=== PATIENT | female | born 1945 | race Caucasian/White ===

== ENCOUNTER 2017-02-02 04:49 | Emergency (ER) | payer OTHER ==
[~2017-02-02] VITALS: Ht 167.6 cm; Wt 94.8 kg
[~2017-02-02 04:49] MED LIST: ADULT LOW DOSE81 M1 PO; ADVAIR 250/501 DISK IH; ADVAIR 500/501 DISK IH; AEROECLIPSE1 EACH MC; ALENDRONATE SOD70 MG PO; ALPRAZOLAM0.25 M2 PO; AMOX TR-K CLV1 EAC4 PO; ASPIR 8181 M1 PO; ASPIRIN81 M2 PO; ATORVASTATIN CA20 MG PO; AZITHROMYCIN250 MG1 PO; AZITHROMYCIN500 M1 PO; BINOSTO70 MG PO; CALCIUM 500 MG1 EAC1 PO; CENTRUM SILVER1 EAC3 PO; CHILD ASPIRIN81 M1 PO; CYANOCOBALAM1000 MCG PO; DALIRESP500 MCG PO; FISH OIL 1,0001 EAC7 PO; FISH OIL 1,2001 EAC4 PO; FISH OIL300 MG PO; FLONASE16 G1 BOTH NARES; FLORASTOR250 MG PO; FOLBIC RF TABL1 EACH PO; FOSAMAX70 MG PO; LEVAQUIN500 MG PO; LEVOFLOXACIN750 MG PO; LIPITOR20 MG PO; LIPITOR40 MG PO; MAGNESIUM400 M1 PO; MAGNESIUM400 MG PO; MAGOX 400400 MG PO; MELOXICAM7.5 MG PO; MICARDIS40 MG PO; MUCINEX600 MG PO; NEXIUM40 MG PO; NICOTINE PATCH1 EAC2 TD; PREDNISONE10 MG PO; PREDNISONE20 MG PO; PREDNISONE50 MG PO; PROAIR HFA8.5 GM IH; PROVENTIL,2.5 MG/0.5 IH; PROVENTIL,2.5 MG/3 M IH; ROBITUSSIN AC,T10 ML PO; SPIRIVA1 INHALATI IH; TYLENOL EXTRA500 MG PO; VENTOLIN HFA18 GM IH; VITAMIN D5000 UNIT PO; WELLBUTRIN SR150 MG PO; ZITHROMAX Z-PA250 MG PO
[2017-02-02 05:40] LABS: CHLORIDE 105 mEq/L (99-109); POTASSIUM 4.6 mEq/L (3.7-5.4); SODIUM 138 mEq/L (136-147)
[2017-02-02 05:42] LABS: GLUCOSE 115 mg/dL (70-99)
[2017-02-02 05:44] LABS: ANION GAP 12 MEQ/L (2-14)
[2017-02-02 05:45] LABS: TROP-I INTERPRETATION NEGATIVE; TROPONIN-I < 0.01 ng/mL (0.0-0.30)
[2017-02-02 05:46] LABS: GFR ESTIMATE (CALCULATED) 58 mL/min/; HEMATOCRIT 41.8 % (36.0-46.0); MCH 28.1 PG (29.0-34.0); MCHC 32.8 G/DL (30.0-36.0); MCV 85.8 FL (83-99); MEAN PLAT.VOLUME 10.1 uM^3 (9.5-12.4); PLATELET COUNT 290 K/uL (156-360); RBC DIS.WIDTH-CV 14.2 % (11.8-14.6); RBC DIS.WIDTH-SD 44.4 % (39-53); RED BLOOD COUNT 4.87 M/uL (3.80-5.20); WHITE BLOOD COUNT 9.5 K/uL (4.1-10.2)
[2017-02-02 05:47] LABS: UREA NITROGEN (BUN) 17 mg/dL (9-23)
[2017-02-02] MEDS ORDERED: ZITHROMAX Z-PA250 MG PO (06:15)
[2017-02-02] MEDS ORDERED: PREDNISONE50 MG PO (06:15)
[2017-02-02 06:31] VITALS: BP 154/93
== END 2017-02-02 06:33 | disposition home or self-care (01) ==
LOC: EME → EDBD 04:49 → EME 06:33
DX: J44.1 Chronic obstructive pulmonary disease with (acute) exacerbation (principal); R51 Headache; J45.909 Unspecified asthma, uncomplicated; I10 Essential (primary) hypertension; E78.5 Hyperlipidemia, unspecified; Z79.82 Long term (current) use of aspirin; Z87.891 Personal history of nicotine dependence
CPT/HCPCS: 71020; 80048; 84484; 85027; 93005; 94640; 99281; 99285; J7512

== ENCOUNTER 2017-06-19 21:33 | Inpatient (IN) | payer OTHER ==
[~2017-06-19] VITALS: Ht 167.6 cm; Wt 92.3 kg
[~2017-06-19 21:33] MED LIST changes: +MICARDIS HCT1 TABLE1 PO; +VITAMIN B-12250 MCG PO
[2017-06-19 22:11] LABS: HEMATOCRIT 40.1 % (36.0-46.0); MCH 28.3 PG (29.0-34.0); MCHC 33.9 G/DL (30.0-36.0); MCV 83.5 FL (83-99); MEAN PLAT.VOLUME 9.8 uM^3 (9.5-12.4); PLATELET COUNT 311 K/uL (156-360); RBC DIS.WIDTH-CV 13.5 % (11.8-14.6); RBC DIS.WIDTH-SD 41.1 % (39-53); WHITE BLOOD COUNT 11.6 K/uL (4.1-10.2)
[2017-06-19 22:24] LABS: CHLORIDE 101 mEq/L (99-109); POTASSIUM 4.1 mEq/L (3.7-5.4); SODIUM 135 mEq/L (136-147)
[2017-06-19 22:26] LABS: GLUCOSE 153 mg/dL (70-99)
[2017-06-19 22:27] LABS: ANION GAP 15 MEQ/L (2-14)
[2017-06-19 22:29] LABS: GFR ESTIMATE (CALCULATED) 47 mL/min/
[2017-06-19 22:30] LABS: UREA NITROGEN (BUN) 25 mg/dL (9-23)
[2017-06-20 05:22] VITALS: BP 155/54
[2017-06-20 06:50] LABS: HEMATOCRIT 40.7 % (36.0-46.0); MCH 29.7 PG (29.0-34.0); MCHC 34.9 G/DL (30.0-36.0); MCV 85.1 FL (83-99); MEAN PLAT.VOLUME 10.1 uM^3 (9.5-12.4); PLATELET COUNT 314 K/uL (156-360); RBC DIS.WIDTH-CV 13.6 % (11.8-14.6); RBC DIS.WIDTH-SD 42.5 % (39-53); RED BLOOD COUNT 4.78 M/uL (3.80-5.20); WHITE BLOOD COUNT 10.1 K/uL (4.1-10.2)
[2017-06-20 07:15] LABS: ALKALINE PHOSPHATASE 90 IU/L (3-129); ANION GAP 15 MEQ/L (2-14); CHLORIDE 99 MEQ/L (99-109); GFR ESTIMATE (CALCULATED) 52 mL/min/; GLUCOSE 161 mg/dL (70-99); POTASSIUM 4.8 MEQ/L (3.7-5.4); SAMPLE HEMOLYSIS CHECK 0; SAMPLE ICTERIC CHECK 0; SAMPLE LIPEMIA CHECK 0; SODIUM 137 MEQ/L (136-147); TOTAL BILIRUBIN 0.6 MG/DL (0.0-1.0); UREA NITROGEN (BUN) 24 mg/dL (9-23)
[2017-06-20 07:55] VITALS: BP 133/83
[2017-06-20] MEDS ORDERED: PREDNISONE20 MG PO (11:14)
[2017-06-20] MEDS ORDERED: AZELASTINE137 MCG/0. BOTH NARES (11:15)
[2017-06-20] MEDS ORDERED: MONTELUKAST SOD10 MG PO (11:18)
[2017-06-20] MEDS ORDERED: VITAMIN E400 UNIT PO (11:19)
[2017-06-20] MEDS ORDERED: AZITHROMYCIN250 MG1 PO (11:19)
[2017-06-20 11:32] VITALS: BP 151/67
[2017-06-20 11:37] LABS: POINT-OF-CARE METER ID UU14208750
[2017-06-20 16:31] LABS: POINT-OF-CARE METER ID UU14208750
[2017-06-20 16:47] VITALS: BP 136/66
[2017-06-20 19:44] VITALS: BP 127/60
[2017-06-20 21:14] LABS: POINT-OF-CARE METER ID UU14208750
[2017-06-20 23:27] VITALS: BP 100/53
[2017-06-21 03:40] VITALS: BP 130/75
[2017-06-21 05:47] LABS: EOSINOPHIL (%) 0 % (0-5); HEMATOCRIT 37.2 % (36.0-46.0); IMMATURE GRANULOCYTE (%) 0.7 % (0.0-0.7); IMMATURE GRANULOCYTE COUNT 0.2 K/uL; INSTRUMENT ABS NEUTROPHIL CT 19.3 K/uL; LYMPHOCYTE COUNT 0.7 K/uL (1.0-2.8); MCH 28.2 PG (29.0-34.0); MCHC 33.3 G/DL (30.0-36.0); MCV 84.7 FL (83-99); MEAN PLAT.VOLUME 10.3 uM^3 (9.5-12.4); MONOCYTE (%) 2.2 % (3-12); MONOCYTE COUNT 0.5 K/uL (0-0.8); NEUTROPHIL (%) 93.4 % (45-76); NEUTROPHIL COUNT 19.3 K/uL (1.8-6.4); PLATELET COUNT 306 K/uL (156-360); RBC DIS.WIDTH-SD 43.4 % (39-53); RED BLOOD COUNT 4.39 M/uL (3.80-5.20); WHITE BLOOD COUNT 20.7 K/uL (4.1-10.2)
[2017-06-21 06:11] LABS: ANION GAP 12 MEQ/L (2-14); CHLORIDE 104 MEQ/L (99-109); GFR ESTIMATE (CALCULATED) 52 mL/min/; GLUCOSE 191 mg/dL (70-99); POTASSIUM 4.4 MEQ/L (3.7-5.4); SAMPLE HEMOLYSIS CHECK 0; SAMPLE ICTERIC CHECK 0; SAMPLE LIPEMIA CHECK 0; SODIUM 137 MEQ/L (136-147); UREA NITROGEN (BUN) 28 mg/dL (9-23)
[2017-06-21 07:42] VITALS: BP 120/58
[2017-06-21 10:21] LABS: Estimated Average Glucose 120 mg/dL (70-123); HEMOGLOBIN A1c (GLYCOHEMOGLOB) 5.8 % HGB (Below 5.7)
[2017-06-21 11:47] LABS: POINT-OF-CARE METER ID UU14208750
[2017-06-21 16:21] LABS: POINT-OF-CARE METER ID UU14208750
[2017-06-21 16:44] VITALS: BP 132/61
[2017-06-21 21:23] LABS: POINT-OF-CARE METER ID UU14208750
[2017-06-21 23:41] VITALS: BP 111/55
[2017-06-22 03:53] VITALS: BP 106/55
[2017-06-22 06:21] LABS: EOSINOPHIL (%) 0 % (0-5); HEMATOCRIT 39.1 % (36.0-46.0); IMMATURE GRANULOCYTE (%) 0.9 % (0.0-0.7); IMMATURE GRANULOCYTE COUNT 0.2 K/uL; INSTRUMENT ABS NEUTROPHIL CT 16.5 K/uL; LYMPHOCYTE COUNT 0.6 K/uL (1.0-2.8); MCH 28.1 PG (29.0-34.0); MCV 85.2 FL (83-99); MEAN PLAT.VOLUME 10.1 uM^3 (9.5-12.4); MONOCYTE (%) 2.5 % (3-12); MONOCYTE COUNT 0.4 K/uL (0-0.8); NEUTROPHIL (%) 93.4 % (45-76); NEUTROPHIL COUNT 16.5 K/uL (1.8-6.4); PLATELET COUNT 331 K/uL (156-360); RBC DIS.WIDTH-CV 14.1 % (11.8-14.6); RBC DIS.WIDTH-SD 43.7 % (39-53); RED BLOOD COUNT 4.59 M/uL (3.80-5.20); WHITE BLOOD COUNT 17.6 K/uL (4.1-10.2)
[2017-06-22 06:38] LABS: POINT-OF-CARE METER ID UU14208750
[2017-06-22 06:49] LABS: ALKALINE PHOSPHATASE 80 IU/L (3-129); ANION GAP 11 MEQ/L (2-14); CHLORIDE 102 MEQ/L (99-109); GFR ESTIMATE (CALCULATED) 52 mL/min/; GLUCOSE 140 mg/dL (70-99); POTASSIUM 4.6 MEQ/L (3.7-5.4); SAMPLE HEMOLYSIS CHECK 0; SAMPLE ICTERIC CHECK 0; SAMPLE LIPEMIA CHECK 0; SODIUM 135 MEQ/L (136-147); TOTAL BILIRUBIN 0.5 MG/DL (0.0-1.0); UREA NITROGEN (BUN) 32 mg/dL (9-23)
[2017-06-22 07:47] VITALS: BP 125/59
[2017-06-22] MEDS ORDERED: MICARDIS40 MG PO (09:16)
[2017-06-22] MEDS ORDERED: CEFTIN500 MG PO (09:16)
== END 2017-06-22 11:05 | disposition home or self-care (01) | DRG 192 ==
LOC: EME 21:33 → EDOF 06-20 02:44 → ENRESERV 06-20 02:59 → 2EASTP 06-20 04:58
PROVIDERS: Hospitalist; Internal Medicine
DX: J44.0 Chronic obstructive pulmonary disease with (acute) lower respiratory infection (principal); J20.9 Acute bronchitis, unspecified; J44.1 Chronic obstructive pulmonary disease with (acute) exacerbation; R73.9 Hyperglycemia, unspecified; I10 Essential (primary) hypertension; G47.33 Obstructive sleep apnea (adult) (pediatric); F41.9 Anxiety disorder, unspecified; K21.9 Gastro-esophageal reflux disease without esophagitis; E78.00 Pure hypercholesterolemia, unspecified; E78.5 Hyperlipidemia, unspecified; I73.9 Peripheral vascular disease, unspecified; Z72.0 Tobacco use; Z68.32 Body mass index [BMI] 32.0-32.9, adult; Z79.899 Other long term (current) drug therapy; Z90.49 Acquired absence of other specified parts of digestive tract; Z82.49 Family history of ischemic heart disease and other diseases of the circulatory system
CPT/HCPCS: 71010; 80048; 80053; 82948; 83036; 85025; 85027; 93005; 94640; 94640 76; 94644; 94660; 94799; 99202; 99281; 99285; J0696; J1644; J1815; J2930; J7030; J7050

== ENCOUNTER 2017-07-20 00:20 | Inpatient (IN) | payer OTHER ==
[~2017-07-20] VITALS: Ht 167.6 cm; Wt 91.5 kg
[~2017-07-20 00:20] MED LIST changes: +AZELASTINE137 MCG/0. BOTH NARES; +CEFTIN500 MG PO; +MONTELUKAST SOD10 MG PO; +VITAMIN E400 UNIT PO
[2017-07-20 01:31] LABS: BASOPHIL COUNT 0.1 K/uL (0-0.1); EOSINOPHIL (%) 12.8 % (0-5); EOSINOPHIL COUNT 1.1 K/uL (0-0.3); HEMATOCRIT 38.2 % (36.0-46.0); IMMATURE GRANULOCYTE (%) 0.2 % (0.0-0.7); INSTRUMENT ABS NEUTROPHIL CT 4.2 K/uL; LYMPHOCYTE COUNT 2.2 K/uL (1.0-2.8); MCH 28.4 PG (29.0-34.0); MEAN PLAT.VOLUME 9.6 uM^3 (9.5-12.4); MONOCYTE (%) 7.5 % (3-12); MONOCYTE COUNT 0.6 K/uL (0-0.8); NEUTROPHIL (%) 51.5 % (45-76); NEUTROPHIL COUNT 4.2 K/uL (1.8-6.4); PLATELET COUNT 292 K/uL (156-360); RBC DIS.WIDTH-CV 13.7 % (11.8-14.6); RBC DIS.WIDTH-SD 42.8 % (39-53); RED BLOOD COUNT 4.44 M/uL (3.80-5.20); WHITE BLOOD COUNT 8.2 K/uL (4.1-10.2)
[2017-07-20 01:42] LABS: CHLORIDE 106 mEq/L (99-109); POTASSIUM 3.4 mEq/L (3.7-5.4); SODIUM 143 mEq/L (136-147)
[2017-07-20 01:44] LABS: GLUCOSE 163 mg/dL (70-99)
[2017-07-20 01:46] LABS: ANION GAP 13 MEQ/L (2-14)
[2017-07-20 01:48] LABS: GFR ESTIMATE (CALCULATED) > 59 mL/min/
[2017-07-20 01:49] LABS: UREA NITROGEN (BUN) 19 mg/dL (9-23)
[2017-07-20 01:51] LABS: TROP-I INTERPRETATION NEGATIVE; TROPONIN-I < 0.01 ng/mL (0.0-0.30)
[2017-07-20 04:46] VITALS: BP 151/79
[2017-07-20 08:15] VITALS: BP 134/71
[2017-07-20] MEDS ORDERED: BUSPAR5 MG PO (09:03)
[2017-07-20] MEDS ORDERED: ATIVAN1 MG PO (09:03)
[2017-07-20] MEDS ORDERED: AMLOD-VALSA-HC1 EAC1 PO (09:03)
[2017-07-20] MEDS ORDERED: ZITHROMAX500 MG PO (09:04)
[2017-07-20 13:00] VITALS: BP 149/71
[2017-07-20 16:11] VITALS: BP 140/67
[2017-07-20 19:52] VITALS: BP 131/66
[2017-07-20 23:20] VITALS: BP 137/68
[2017-07-21 03:33] VITALS: BP 126/59
[2017-07-21 07:42] LABS: HEMATOCRIT 41.3 % (36.0-46.0); MCH 27.9 PG (29.0-34.0); MCV 87.3 FL (83-99); PLATELET COUNT 367 K/uL (156-360); RBC DIS.WIDTH-CV 14.1 % (11.8-14.6); RBC DIS.WIDTH-SD 45.4 % (39-53); RED BLOOD COUNT 4.73 M/uL (3.80-5.20); WHITE BLOOD COUNT 15.5 K/uL (4.1-10.2)
[2017-07-21 07:50] VITALS: BP 121/59
[2017-07-21 08:11] LABS: ANION GAP 11 MEQ/L (2-14); CHLORIDE 105 MEQ/L (99-109); GFR ESTIMATE (CALCULATED) 58 mL/min/; GLUCOSE 135 mg/dL (70-99); POTASSIUM 4.8 MEQ/L (3.7-5.4); SAMPLE HEMOLYSIS CHECK 0; SAMPLE ICTERIC CHECK 0; SAMPLE LIPEMIA CHECK 0; SODIUM 141 MEQ/L (136-147); UREA NITROGEN (BUN) 25 mg/dL (9-23)
[2017-07-21 11:38] VITALS: BP 137/71
[2017-07-21 15:55] VITALS: BP 130/77
[2017-07-21 20:00] VITALS: BP 138/63
[2017-07-22] VITALS (7 sets, daily range): BP systolic 133–163; BP diastolic 65–77
[2017-07-23 03:35] VITALS: BP 144/67
[2017-07-23 06:42] LABS: EOSINOPHIL (%) 0 % (0-5); HEMATOCRIT 39.9 % (36.0-46.0); IMMATURE GRANULOCYTE (%) 1.8 % (0.0-0.7); IMMATURE GRANULOCYTE COUNT 0.2 K/uL; LYMPHOCYTE COUNT 0.7 K/uL (1.0-2.8); MCH 28.4 PG (29.0-34.0); MCHC 32.8 G/DL (30.0-36.0); MCV 86.6 FL (83-99); MEAN PLAT.VOLUME 9.8 uM^3 (9.5-12.4); MONOCYTE (%) 4.7 % (3-12); MONOCYTE COUNT 0.6 K/uL (0-0.8); PLATELET COUNT 360 K/uL (156-360); RBC DIS.WIDTH-CV 13.9 % (11.8-14.6); RBC DIS.WIDTH-SD 44.6 % (39-53); RED BLOOD COUNT 4.61 M/uL (3.80-5.20); WHITE BLOOD COUNT 12.5 K/uL (4.1-10.2)
[2017-07-23 07:02] VITALS: BP 168/80
[2017-07-23 07:05] LABS: ANION GAP 11 MEQ/L (2-14); CHLORIDE 105 MEQ/L (99-109); GFR ESTIMATE (CALCULATED) 58 mL/min/; GLUCOSE 135 mg/dL (70-99); POTASSIUM 4.3 MEQ/L (3.7-5.4); SAMPLE HEMOLYSIS CHECK 0; SAMPLE ICTERIC CHECK 0; SAMPLE LIPEMIA CHECK 0; SODIUM 141 MEQ/L (136-147); UREA NITROGEN (BUN) 32 mg/dL (9-23)
[2017-07-23] MEDS ORDERED: CEFTIN500 MG PO (13:59)
[2017-07-23] MEDS ORDERED: GUAIFENESIN WI120 M1 PO (14:00)
[2017-07-23] MEDS ORDERED: PREDNISONE20 MG PO (14:01)
== END 2017-07-23 14:30 | disposition home or self-care (01) | DRG 190 ==
LOC: EME → EDBD 00:20 → EDOF 02:34 → 2EAST 02:34 → EDOF 02:34 → ENRESERV 02:35 → 2EAST 04:37
PROVIDERS: Emergency Medicine; Hospitalist; Internal Medicine
PROC: 5A09357 Assistance with Respiratory Ventilation, Less than 24 Consecutive Hours, Continuous Positive Airway Pressure (ICD-10-PCS; principal; 2017-07-20)
DX: J44.1 Chronic obstructive pulmonary disease with (acute) exacerbation (principal); J96.01 Acute respiratory failure with hypoxia; J44.0 Chronic obstructive pulmonary disease with (acute) lower respiratory infection; J20.9 Acute bronchitis, unspecified; E11.9 Type 2 diabetes mellitus without complications; I10 Essential (primary) hypertension; E78.5 Hyperlipidemia, unspecified; F41.9 Anxiety disorder, unspecified; K21.9 Gastro-esophageal reflux disease without esophagitis; G47.33 Obstructive sleep apnea (adult) (pediatric); M19.90 Unspecified osteoarthritis, unspecified site; Z66 Do not resuscitate; E66.9 Obesity, unspecified; Z68.32 Body mass index [BMI] 32.0-32.9, adult; Z87.891 Personal history of nicotine dependence; Z90.49 Acquired absence of other specified parts of digestive tract; Z90.710 Acquired absence of both cervix and uterus; Z82.49 Family history of ischemic heart disease and other diseases of the circulatory system; Z82.3 Family history of stroke
CPT/HCPCS: 71010; 80048; 84484; 85025; 85027; 87070; 87205; 93005; 94640; 94640 76; 94660; 94799; 99202; 99281; 99285; G0378; J0696; J1644; J2920; J2930; J3475; J7030; J7050; J7644; S0028

== ENCOUNTER 2018-01-12 02:19 | Inpatient (IN) | payer OTHER ==
[~2018-01-12] VITALS: Ht 167.6 cm; Wt 93.5 kg
[~2018-01-12 02:19] MED LIST changes: -ADVAIR 500/501 DISK IH; +ADVAIR HFA120 INHAL1 IH; +AMLOD-VALSA-HC1 EAC1 PO; +ATIVAN1 MG PO; +BUSPAR10 MG PO; +GUAIFENESIN WI120 M1 PO; -VITAMIN B-12250 MCG PO; +ZITHROMAX500 MG PO
[2018-01-12 02:56] LABS: HEMATOCRIT 38.3 % (36.0-46.0); MCH 29.1 PG (29.0-34.0); MCHC 33.9 G/DL (30.0-36.0); MCV 85.9 FL (83-99); PLATELET COUNT 256 K/uL (156-360); RBC DIS.WIDTH-CV 13.2 % (11.8-14.6); RBC DIS.WIDTH-SD 41.2 % (39-53); RED BLOOD COUNT 4.46 M/uL (3.80-5.20)
[2018-01-12 03:18] LABS: TROP-I INTERPRETATION NEGATIVE; TROPONIN-I < 0.01 ng/mL (0.0-0.30)
[2018-01-12 03:28] LABS: ALKALINE PHOSPHATASE 73 IU/L (3-129); ALT (GPT) 18 IU/L (3-49); AST (GOT) 15 IU/L (2-34); CHLORIDE 105 MEQ/L (99-109); CREATININE 0.9 MG/DL (0.6-1.3); GFR ESTIMATE (CALCULATED) > 59 mL/min/; GLUCOSE 147 mg/dL (70-99); POTASSIUM 3.8 MEQ/L (3.7-5.4); SODIUM 141 MEQ/L (136-147); TOTAL BILIRUBIN 0.3 MG/DL (0.0-1.0); TOTAL PROTEIN 6.1 G/DL (6.4-8.3); UREA NITROGEN (BUN) 24 mg/dL (9-23)
[2018-01-12 03:44] LABS: LIPASE 36 U/L (1.0-51.0)
[2018-01-12 07:19] LABS: APPEARANCE CLEAR ((CLEAR)); BILIRUBIN NEGATIVE; BLOOD NEGATIVE; COLOR YELLOW ((YELLOW)); GLUCOSE (STRIP) NEGATIVE; KETONES NEGATIVE; LEUKOCYTES NEGATIVE; NITRITE NEGATIVE; PROTEIN (STRIP) NEGATIVE; SPECIFIC GRAVITY 1.015 (1.000-1.030); UCUL ADDED? NO; UROBILINOGEN 0.2 MG/DL (0.2-1.0)
[2018-01-12 09:00] LABS: TROP-I INTERPRETATION NEGATIVE; TROPONIN-I < 0.01 ng/mL (0.0-0.30)
[2018-01-12 09:07] LABS: MAGNESIUM 2.1 mg/dl (1.3-2.7)
[2018-01-12 09:13] LABS: PHOSPHORUS 3.5 mg/dL (2.5-4.9)
[2018-01-12 10:29] LABS: THYROTROPIN (TSH) 0.48 MIU/L (0.4-5.5)
[2018-01-12] MEDS ORDERED: INCRUSE ELLI62.5 MCG IH (10:59)
[2018-01-12] MEDS ORDERED: DIOVAN80 MG PO (11:01)
[2018-01-12] MEDS ORDERED: VENTOLIN HFA18 GM IH (11:09)
[2018-01-12] MEDS ORDERED: LASIX40 MG PO (11:12)
[2018-01-12] MEDS ORDERED: NORVASC5 MG PO (11:14)
[2018-01-12 16:10] VITALS: BP 133/63
[2018-01-12 17:11] LABS: TROP-I INTERPRETATION NEGATIVE; TROPONIN-I < 0.01 ng/mL (0.0-0.30)
[2018-01-12 20:04] VITALS: BP 114/57
[2018-01-13 00:30] VITALS: BP 133/65
[2018-01-13 01:02] LABS: TROP-I INTERPRETATION NEGATIVE; TROPONIN-I < 0.01 ng/mL (0.0-0.30)
[2018-01-13 05:21] VITALS: BP 118/58
[2018-01-13 05:58] LABS: BASOPHIL (%) 0.1 % (0-1); EOSINOPHIL (%) 0 % (0-5); HEMATOCRIT 43.3 % (36.0-46.0); IMMATURE GRANULOCYTE (%) 0.4 % (0.0-0.7); LYMPHOCYTE COUNT 0.7 K/uL (1.0-2.8); MCH 28.5 PG (29.0-34.0); MCHC 32.3 G/DL (30.0-36.0); MCV 88.2 FL (83-99); MONOCYTE (%) 0.8 % (3-12); MONOCYTE COUNT 0.1 K/uL (0-0.8); NEUTROPHIL (%) 92.7 % (45-76); NEUTROPHIL COUNT 10.6 K/uL (1.8-6.4); RBC DIS.WIDTH-CV 13.4 % (11.8-14.6); RBC DIS.WIDTH-SD 43.1 % (39-53); RED BLOOD COUNT 4.91 M/uL (3.80-5.20); WHITE BLOOD COUNT 11.4 K/uL (4.1-10.2)
[2018-01-13 06:03] LABS: PLATELET COUNT 347 K/uL (156-360)
[2018-01-13 06:14] LABS: ALBUMIN 4.6 G/DL (3.2-4.8); ALKALINE PHOSPHATASE 88 IU/L (3-129); ALT (GPT) 19 IU/L (3-49); AST (GOT) 14 IU/L (2-34); CHLORIDE 103 MEQ/L (99-109); CREATININE 1.1 MG/DL (0.6-1.3); DIRECT BILIRUBIN 0.2 mg/dL (0.0-0.3); GFR ESTIMATE (CALCULATED) 52 mL/min/; GLUCOSE 154 mg/dL (70-99); POTASSIUM 4.5 MEQ/L (3.7-5.4); SODIUM 142 MEQ/L (136-147); UREA NITROGEN (BUN) 21 mg/dL (9-23)
[2018-01-13 06:15] LABS: TOTAL BILIRUBIN 0.4 MG/DL (0.0-1.0); TOTAL PROTEIN 7.3 G/DL (6.4-8.3)
[2018-01-13 07:22] VITALS: BP 149/72
[2018-01-13] MEDS ORDERED: MUCINEX600 MG PO (11:24)
[2018-01-13] MEDS ORDERED: LEVAQUIN750 MG PO (11:25)
[2018-01-13] MEDS ORDERED: MEDROL DOSEPAK4 MG PO (11:25)
== END 2018-01-13 13:28 | disposition home or self-care (01) | DRG 193 ==
LOC: EME → EDBD 02:19 → EDOF 07:24 → ENRESERV 07:28 → 4EAST 15:59 → ENPENDDIS 01-13 → 4EAST 01-13 13:28
PROVIDERS: Emergency Medicine; Internal Medicine
PROC: 5A09357 Assistance with Respiratory Ventilation, Less than 24 Consecutive Hours, Continuous Positive Airway Pressure (ICD-10-PCS; principal; 2018-01-12)
DX: J18.9 Pneumonia, unspecified organism (principal); J96.01 Acute respiratory failure with hypoxia; J44.0 Chronic obstructive pulmonary disease with (acute) lower respiratory infection; J47.0 Bronchiectasis with acute lower respiratory infection; I10 Essential (primary) hypertension; E78.5 Hyperlipidemia, unspecified; K21.9 Gastro-esophageal reflux disease without esophagitis; E11.9 Type 2 diabetes mellitus without complications; F41.9 Anxiety disorder, unspecified; G47.33 Obstructive sleep apnea (adult) (pediatric); M51.36 Other intervertebral disc degeneration, lumbar region; Z87.891 Personal history of nicotine dependence; Z79.82 Long term (current) use of aspirin
CPT/HCPCS: 71046; 80048; 80053; 80076; 81003; 83036; 83605; 83690; 83735; 84100; 84443; 84484; 85025; 85027; 87040; 87070; 87205; 87449; 87502; 93005; 94640; 94640 76; 94660; 94799; 99202; 99281; 99285; J0696; J1650; J1956; J2405; J2920; J7030; S0028